=== PATIENT | female | born 1985 | race Caucasian/White ===

== ENCOUNTER 2021-09-24 20:01 | Emergency (ER) | payer MEDICAID ==
[~2021-09-24] VITALS: Ht 162.6 cm; Wt 54.5 kg
[2021-09-24 20:15] VITALS: BP 130/98
== END 2021-09-24 21:17 ==
LOC: ER 20:02
DX: M54.9 Dorsalgia, unspecified (principal); Z02.89 Encounter for other administrative examinations; V98.8XXA Other specified transport accidents, initial encounter; Y93.89 Activity, other specified; Y92.89 Other specified places as the place of occurrence of the external cause; Y99.8 Other external cause status
CPT/HCPCS: 99283